=== PATIENT | female | born 1990 | race Caucasian/White ===

== ENCOUNTER 2017-04-28 19:47 | Emergency (ER) | payer OTHER ==
[2017-04-28 20:04] VITALS: BP 119/51; PULSE 91; TEMP 98.7; BMI 21.9
--- NOTE | 2017-04-28 20:07 | PDOC ---
Rapid Medical Evaluation Chief Complaint: Urinary Problem Time Seen by Provider: 04/28/17 20:04 Medical Evaluation: Allergies Allergy/AdvReac Type Severity Reaction Status Date / Time No Known Allergies Allergy Verified 04/28/17 20:03 04/28/17 20:04 I have performed a brief in-person evaluation of the patient. The patient presents with chief complaint of: burning with urination, frequency with urination and pressure since today. Denies fever chills or flank pain used azo with no relief LMP 4 weeks ago. Denies vaginal discharge Pertinent physical exam findings are: NAD lungs clear bilaterally non tender lower abdomen I have ordered the following: urine , urinalysis The patient will proceed to the ED for further evaluation. Discharge Disposition - Referrals Referrals: Annetta Henao [Primary Care Provider] - - Patient Instructions - Post Discharge Activity
[2017-04-28 20:53] LABS: URINE APPEARANCE SLCLOUDY; URINE BILIRUBIN NEGATIVE (NEGATIVE); URINE BLOOD 2+ (NEGATIVE); URINE COLOR AMBER; URINE GLUCOSE (UA) NEGATIVE (NEGATIVE); URINE KETONE NEGATIVE (NEGATIVE); URINE LEUK ESTERASE TRACE (NEGATIVE); URINE NITRITE POSITIVE (NEGATIVE); URINE UROBILINOGEN 4.0 E.U/dl mg/dL (0.2-1.0)
[2017-04-28 20:55] LABS: HCG,QUALITATIVE URINE NEGATIVE
--- NOTE | 2017-04-28 20:55 | PDOC ---
History of Present Illness - General Chief Complaint: Urinary Problem Stated Complaint: UTI Time Seen by Provider: 04/28/17 20:04 History Source: Patient Exam Limitations: No Limitations - History of Present Illness Travel History: No Initial Comments: 04/28/17 20:55 Best Contact:[phone] Pmhx: Bipolar, Anxiety Pshx: 2015: C section Allergies: NKDA 26-year-old female presents to the emergency department complaining of burning upon urination, dysuria, urinary frequency/urgency/hesitancy since approximately 1500 hrs. this evening. Patient took one tablet of Azo at 1600 hrs. with no relief. Patient denies fever, chills, nausea/vomiting, chest pains , shortness of breath, flank pains, abdominal pains. Patient states she's had UTIs previously and this and her symptoms today feel similar. Timing/Duration: reports: constant Past History - Past Medical History Allergies/Adverse Reactions: Allergies Allergy/AdvReac Type Severity Reaction Status Date / Time No Known Allergies Allergy Verified 04/28/17 20:03 Home Medications: Ambulatory Orders [place] Carbonate [Eskalith -] 300 mg PO BID 04/28/17 Nitrofurantoin Monohyd/M-Cryst [Macrobid -] 100 mg PO BID #14 capsule 04/28/17 Phenazopyridine HCl [Pyridium] 200 mg PO TID PRN #5 tablet 04/28/17 clonazePAM [Klonopin -] 2 mg PO DAILY 04/28/17 COPD: No - Immunization History Immunization Up to Date: Yes - Suicide/Smoking/Psychosocial Hx Smoking Status: Yes Smoking History: Never smoked Number of Cigarettes Smoked Daily: 4 Information on smoking cessation initiated: No 'Breaking Loose' booklet given: 09/23/15 Hx Alcohol Use: No Drug/Substance Use Hx: No Substance Use Type: None Abd/GI Specific PMHX - Complaint Specific PMHX Colitis: No Diverticulitis: No Gall Bladder Disease: No GERD: No Hepatitis: No Irritable Bowel Synd (IBS): No Pancreatitis: No GI Ulcer Disease: No Review of Systems - Review of Systems Able to Perform ROS?: Yes Comments:: 04/28/17 20:53 CONSTITUTIONAL: Absent: fever, chills, diaphoresis, generalized weakness, malaise, loss of appetite HEENT: Absent: rhinorrhea, nasal congestion, throat pain, throat swelling, difficulty swallowing, mouth swelling, ear pain, eye pain, visual Changes CARDIOVASCULAR: Absent: chest pain, loss of consciousness, palpitations, irregular heart rate, peripheral edema RESPIRATORY: Absent: cough, shortness of breath, dyspnea with exertion, orthopnea, wheezing, stridor, hemoptysis GASTROINTESTINAL: Absent: abdominal pain, abdominal distension, nausea, vomiting, diarrhea, constipation, melena, hematochezia GENITOURINARY: +dysuria, frequency, urgency, hesitancy Absent: hematuria, flank pain, genital pain MUSCULOSKELETAL: Absent: myalgia, arthralgia, joint swelling SKIN: Absent: rash, itching, pallor Is the patient limited Cook Islander proficient: No *Physical Exam - Vital Signs Last Vital Signs Temp Pulse Resp BP Pulse Ox 98.7 F 91 H 18 119/51 97 04/28/17 20:03 04/28/17 20:03 04/28/17 20:03 04/28/17 20:03 04/28/17 20:03 - Physical Exam Comments: 04/28/17 20:54 GENERAL: Well developed, well nourished. Awake and alert. No acute distress. HEENT: Normocephalic, atraumatic. PERRLA, EOMI. No conjunctival pallor. Sclera are non- icteric. Moist mucous membranes. Oropharynx is clear. NECK: Supple. Full ROM. No JVD. Carotid pulses 2+ and symmetric, without bruits. No thyromegaly. No lymphadenopathy. CARDIOVASCULAR: Regular rate and rhythm. No murmurs, rubs, or gallops. Distal pulses are 2+ and symmetric. PULMONARY: No evidence of respiratory distress. Lungs clear to auscultation bilaterally. No wheezing, rales or rhonchi. ABDOMINAL: Soft. Non-tender. Non-distended. No rebound or guarding. No organomegaly. Normoactive bowel sounds. MUSCULOSKELETAL Normal range of motion at all joints. No bony deformities or tenderness. No CVA tenderness. EXTREMITIES: No cyanosis. No clubbing. No edema. No calf tenderness. SKIN: Warm and dry. Normal capillary refill. No rashes. No jaundice. *DC/Admit/Observation/Transfer Diagnosis at time of Disposition: UTI (urinary tract infection) Qualifiers: Urinary tract infection type: acute cystitis Hematuria presence: with hematuria Qualified Code(s): N30.01 - Acute cystitis with hematuria - Discharge Dispostion Disposition: HOME Condition at time of disposition: Stable Admit: No - Prescriptions Prescriptions: Nitrofurantoin Monohyd/M-Cryst [Macrobid -] 100 mg PO BID #14 capsule Phenazopyridine HCl [Pyridium] 200 mg PO TID PRN #5 tablet PRN Reason: Pain Level 7 - 10 - Referrals Referrals: Annetta Henao [Primary Care Provider] - Sriram Kurtz MD., [Staff Physician] - - Patient Instructions Printed Discharge Instructions: DI for Urinary Tract Infection (UTI) Additional Instructions: Increase fluids Pelvic rest Take antibiotics/Macrobid until complete Take Pyridium only if needed for your symptoms of burn upon urination, urinary frequency and urgency Return back to the emergency department for severe/persistent or worsening symptoms - Post Discharge Activity
[2017-04-28 20:56] LABS: URINE PROTEIN 2+ (NEGATIVE)
[2017-04-28 20:58] LABS: EPI CELLS FEW /HPF (FEW); URINE BACTERIA RARE /hpf (NONE SEEN); URINE MUCUS RARE
[2017-04-28] MEDS ORDERED: NITROFURANTOIN MACROCRYSTAL 50 MG CAPSULE (FP) PO SCH (21:00)
[2017-04-28] MEDS ORDERED: NITROFURANTOIN MACROCRYSTAL 50 MG CAPSULE (FP) ONE (21:01)
--- NOTE | 2017-05-01 07:29 | PDOC ---
Patient Follow-up (Call Back) - Post ED Follow - Up Condition at time of discharge: Stable Disposition at time of original discharge: HOME Reason for Call Back: Abnwl. Microbiology (Patient's urine culture preliminary shows non Lactose fermenting GNB 30-40,000 CFU per mL. Patient was placed on Macrobid upon ED discharge. Will await final report.)
== END 2017-04-28 21:04 | disposition home or self-care (01) ==
LOC: JERFT 19:47
DX: N30.01 Acute cystitis with hematuria (principal)
CPT/HCPCS: 81003; 81015; 84703; 87086; 87186; 99281-25

== ENCOUNTER 2017-06-08 21:37 | Emergency (ER) | payer OTHER ==
[2017-06-08 21:49] VITALS: BP 154/82; PULSE 98; TEMP 98.1; BMI 18.8
--- NOTE | 2017-06-08 22:17 | PDOC ---
History of Present Illness - General Chief Complaint: Injury Stated Complaint: LT ANKLE PAIN Time Seen by Provider: 06/08/17 21:52 - History of Present Illness Initial Comments: 06/08/17 22:16 CHIEF COMPLAINT: HISTORY OF PRESENT ILLNESS: No recent travel or sick contacts. PAST MEDICAL HISTORY: Denies past medical history FAMILY HISTORY: Denies SOCIAL HISTORY: Lives at home with ____. Occupation: . Denies tobacco, alcohol, illicit drug use. SURGICAL HISTORY: Denies ALLERGIES: No known drug allergies REVIEW OF SYSTEMS General/Constitutional: Denies fever or chills. Denies weakness, weight change. HEENT: Denies change in vision. Denies ear pain or discharge. Denies sore throat. Cardiovascular: Denies chest pain or shortness of breath. Respiratory: Denies cough, wheezing, or hemoptysis. Gastrointestinal: Denies nausea, vomiting, diarrhea or constipation. Denies rectal bleeding. Genitourinary: Denies dysuria, frequency, or change in urination. Musculoskeletal: Left ankle pain. Denies joint or muscle swelling or pain. Denies neck or back pain. PHYSICAL EXAM General Appearance: Well-appearing, appropriately dressed. No apparent distress , no intoxication. HEENT: EOMI, PERRLA, normal ENT inspection, normal voice, TMs normal, pharynx normal. No conjunctival pallor. No photophobia, scleral icterus. Neck: Supple. Trachea midline. No tenderness, rigidity, carotid bruit, stridor , lymphadenopathy, or thyromegaly. Respiratory/Chest: Lungs CTAB. No shortness of breath, chest tenderness, respiratory distress, accessory muscle use. No crackles, rales, rhonchi, stridor , wheezing, dullness Cardiovascular: RRR. S1, S2. No JVD, murmur, bradycardia, tachycardia. Vascular Pulses: Dorsalis-Pedis (R): 2+, Dorsalis-Pedis (L): 2+ Gastrointestinal/Abdominal: Normal bowel sounds. Abdomen soft, non-distended. No tenderness or rebound tenderness. No organomegaly, pulsatile mass, guarding , hernia, hepatomegaly, splenomegaly. Lymphatic: No adenopathy, tenderness. Musculoskeletal/Extremities: Tenderness to medial L malleolus. Normal inspection. FROM of all extremities, normal capillary refill. Pelvis Stable. No CVA tenderness. No tenderness to extremities, pedal edema, swelling, erythema or deformity. Integumentary: Appropriate color, dry, warm. No cyanosis, erythema, jaundice or rash Neurologic: loss control manager II-XII intact. Fully oriented, alert. Appropriate mood/affect. Motor strength 5/5. No appreciable EOM palsy, facial droop or sensory deficit. Past History - Past Medical History Allergies/Adverse Reactions: Allergies Allergy/AdvReac Type Severity Reaction Status Date / Time No Known Allergies Allergy Verified 04/28/17 20:03 Home Medications: Ambulatory Orders [place] Carbonate [Eskalith -] 300 mg PO BID 04/28/17 Acetaminophen [Tylenol .Extra-Strength -] 1,000 mg PO Q6H PRN #40 tablet Olanzapine [Zyprexa] 5 mg PO ASDIR 06/08/17 COPD: No - Immunization History Immunization Up to Date: Yes - Suicide/Smoking/Psychosocial Hx Smoking Status: Yes Smoking History: Never smoked Have you smoked in the past 12 months: No Number of Cigarettes Smoked Daily: 4 Information on smoking cessation initiated: No 'Breaking Loose' booklet given: 09/23/15 Hx Alcohol Use: No Drug/Substance Use Hx: No Substance Use Type: None *Physical Exam - Vital Signs Last Vital Signs Temp Pulse Resp BP Pulse Ox 98.1 F 98 H 20 154/82 100 06/08/17 21:47 06/08/17 21:47 06/08/17 21:47 06/08/17 21:47 06/08/17 21:47 ED Treatment Course - ADDITIONAL ORDERS Additional order review: Laboratory Results 06/08/17 21:50 Urine HCG, Qual Negative - RADIOLOGY Radiology Studies Ordered: Category Date Time Status ANKLE & FOOT-LEFT* [RAD] Stat Radiology 06/08/17 21:53 Ordered *DC/Admit/Observation/Transfer Diagnosis at time of Disposition: Ankle sprain - Discharge Dispostion Disposition: HOME Condition at time of disposition: Stable Admit: No - Prescriptions Prescriptions: Acetaminophen [Tylenol .Extra-Strength -] 1,000 mg PO Q6H PRN #40 tablet PRN Reason: Pain - Referrals Referrals: José Luis Segovia MD [Staff Physician] - - Patient Instructions Printed Discharge Instructions: DI for Ankle Sprain, How To Perform RICE (Rest , Ice, Compress, Elevate) Additional Instructions: Please take medication as prescribed. Follow RICE therapy as provided in information packet. As discussed, if your symptoms do not improve in 5-7 days, please follow up with an orthopedics for further evaluation and a possible MRI or physical therapy. If you experience any loss of sensation to your extremities, any new swelling or increased pain to your calf or leg, palpitations, shortness of breath, or any new or worsening symptoms, please return to the ER. - Post Discharge Activity
[2017-06-08] MEDS ORDERED: ACETAMINOPHEN 325 MG TABLET (FP) ONE (22:43)
== END 2017-06-08 22:59 | disposition home or self-care (01) ==
LOC: JERFT 21:37
DX: S93.402A Sprain of unspecified ligament of left ankle, initial encounter (principal); X58.XXXA Exposure to other specified factors, initial encounter; Y93.89 Activity, other specified; Y92.89 Other specified places as the place of occurrence of the external cause; Y99.8 Other external cause status
CPT/HCPCS: 73610-TC-LT-FY; 73630-TC-LT; 84703; 99281-25

== ENCOUNTER 2017-07-21 12:33 | Emergency (ER) | payer OTHER ==
[2017-07-21 13:02] VITALS: BP 135/73; PULSE 97; TEMP 98.1; BMI 20.3
[2017-07-21 13:37] LABS: URINE APPEARANCE TURBID; URINE BILIRUBIN NEGATIVE (<2.0 mg/dL); URINE BLOOD NEGATIVE (NEGATIVE); URINE COLOR DKYELLOW; URINE GLUCOSE (UA) NEGATIVE (NEGATIVE); URINE KETONE TRACE (NEGATIVE); URINE NITRITE POSITIVE (NEGATIVE)
[2017-07-21 13:38] LABS: HCG,QUALITATIVE URINE NEGATIVE
[2017-07-21 13:39] LABS: URINE LEUK ESTERASE 3+ (NEGATIVE); URINE PROTEIN 1+ (NEGATIVE)
--- NOTE | 2017-07-21 13:43 | PDOC ---
History of Present Illness - General Chief Complaint: Urinary Problem Stated Complaint: POSSIBLE UTI Time Seen by Provider: 07/21/17 13:00 Past History - Past Medical History Allergies/Adverse Reactions: Allergies Allergy/AdvReac Type Severity Reaction Status Date / Time No Known Allergies Allergy Verified 07/21/17 12:59 Home Medications: Ambulatory Orders [place] Carbonate [Eskalith -] 300 mg PO BID 04/28/17 Acetaminophen [Tylenol .Extra-Strength -] 1,000 mg PO Q6H PRN #40 tablet Olanzapine [Zyprexa] 5 mg PO ASDIR 06/08/17 Nitrofurantoin Monohyd/M-Cryst [Macrobid -] 100 mg PO BID #14 capsule 07/21/17 COPD: No Psychiatric Problems: Yes - Immunization History Immunization Up to Date: Yes - Suicide/Smoking/Psychosocial Hx Smoking Status: Yes Smoking History: Current every day smoker Have you smoked in the past 12 months: No Number of Cigarettes Smoked Daily: 4 Information on smoking cessation initiated: No 'Breaking Loose' booklet given: 09/23/15 Hx Alcohol Use: No Drug/Substance Use Hx: No Substance Use Type: None *Physical Exam - Vital Signs Last Vital Signs Temp Pulse Resp BP Pulse Ox 98.1 F 97 H 18 135/73 96 07/21/17 12:59 07/21/17 12:59 07/21/17 12:59 07/21/17 12:59 07/21/17 12:59 ED Treatment Course - ADDITIONAL ORDERS Additional order review: Laboratory Results 07/21/17 13:15 Urine Color Dkyellow Urine Appearance Turbid Urine pH 7.0 D Ur Specific [place] 1.024 Urine Protein 1+ H Urine Glucose (UA) Negative Urine Ketones Trace H Urine Blood Negative Urine Nitrite Positive Urine Bilirubin Negative Urine Urobilinogen 2.0 H Ur Leukocyte Esterase 3+ H Urine HCG, Qual Negative Medical Decision Making - Medical Decision Making Patient eloped prior to examination and history. 07/21/17 13:50 *DC/Admit/Observation/Transfer Diagnosis at time of Disposition: UTI (urinary tract infection) - Discharge Dispostion Disposition: ELOPED Decision to Admit order: No - Prescriptions Prescriptions: Nitrofurantoin Monohyd/M-Cryst [Macrobid -] 100 mg PO BID #14 capsule - Referrals Referrals: Annetta Henao [Primary Care Provider] - - Patient Instructions Printed Discharge Instructions: Urinary Tract Infection - Post Discharge Activity
[2017-07-21 14:00] LABS: EPI CELLS RARE /HPF (FEW); URINE BACTERIA MANY /hpf (NONE SEEN); URINE MUCUS RARE
== END 2017-07-21 13:51 | disposition left against medical advice (07) ==
LOC: JER 12:33 → JERFT 12:33
DX: Z53.21 Procedure and treatment not carried out due to patient leaving prior to being seen by health care provider (principal)
CPT/HCPCS: 81003; 81015; 84703; 99281-25

== ENCOUNTER 2018-04-30 20:17 | Emergency (ER) | payer OTHER ==
[2018-04-30 20:21] VITALS: BP 123/74; PULSE 102; TEMP 98; BMI 20.3
--- NOTE | 2018-04-30 20:22 | PDOC ---
Rapid Medical Evaluation Time Seen by Provider: 04/30/18 20:19 Medical Evaluation: Allergies Allergy/AdvReac Type Severity Reaction Status Date / Time No Known Allergies Allergy Verified 07/21/17 12:59 04/30/18 20:19 I performed a brief in-person evaluation of this patient. Chief complaint: Fever, bodyaches Pertinent physical exam findings: Clear lungs, afebrile, HR 102 I have ordered the following: Rapid flu Patient will proceed to the ED for further evaluation. 04/30/18 20:22 Discharge Disposition - Diagnosis Flu-like symptoms - Referrals - Patient Instructions - Post Discharge Activity
--- NOTE | 2018-04-30 20:44 | PDOC ---
History of Present Illness - General Chief Complaint: Cold Symptoms Stated Complaint: HAS THE FLU Time Seen by Provider: 04/30/18 20:19 History Source: Patient Exam Limitations: No Limitations - History of Present Illness Initial Comments: 04/30/18 20:43 HISTORY OF PRESENT ILLNESS: This is a 27-year-old woman denies medical history was resents emergency department for evaluation of bitemporal headache, moist cough, subjective fevers and body aches for the past 2 days. Patient is unsure if she has any sick contacts was been taking some [id number] medication with minimal relief of symptoms. Patient believes she has the flu was here for testing. No recent travel or sick contacts. PAST MEDICAL HISTORY: Denies past medical history SURGICAL HISTORY: Denies ALLERGIES: No known drug allergies REVIEW OF SYSTEMS General/Constitutional: +fever. Denies weakness, weight change. HEENT: Denies change in vision. Denies ear pain or discharge. +sore throat. Cardiovascular: Denies chest pain or shortness of breath. Respiratory: Moist productive cough. Denies wheezing, or hemoptysis. Gastrointestinal: Denies nausea, vomiting, diarrhea or constipation. Denies rectal bleeding. Genitourinary: Denies dysuria, frequency, or change in urination. Musculoskeletal: +myalgias. Denies neck or back pain. Skin and breasts: Denies rash or easy bruising. Neurologic: Denies headache, vertigo, loss of consciousness, or loss of sensation. Psychiatric: Denies depression or anxiety. Endocrine: Denies increased thirst. Denies abnormal weight change. Hematologic/Lymphatic: Denies anemia, easy bleeding, or history of blood clots. Allergic/Immunologic: Denies hives or skin allergy. Denies latex allergy. PHYSICAL EXAM General Appearance: Well-appearing, appropriately dressed. No apparent distress , no intoxication. HEENT: EOMI, PERRLA, normal voice, TMs retracted bilaterally. No conjunctival pallor. No photophobia, scleral icterus. Oropharynx erythematous without lesions or exudate. Cobblestoning noted in the posterior. No nasal discharge present. Neck: Supple. Trachea midline. No tenderness, rigidity, carotid bruit, stridor , or thyromegaly. Nontender anterior cervical lymphadenopathy present. Respiratory/Chest: Lungs CTAB. No shortness of breath, chest tenderness, respiratory distress, accessory muscle use. No crackles, rales, rhonchi, stridor , wheezing, dullness Cardiovascular: RRR. S1, S2. No JVD, murmur, bradycardia, tachycardia. Vascular Pulses: Dorsalis-Pedis (R): 2+, Dorsalis-Pedis (L): 2+ Gastrointestinal/Abdominal: Normal bowel sounds. Abdomen soft, non-distended. No tenderness or rebound tenderness. No organomegaly, pulsatile mass, guarding, hernia, hepatomegaly, splenomegaly. Musculoskeletal/Extremities: Normal inspection. FROM of all extremities, normal capillary refill. Pelvis Stable. No CVA tenderness. No tenderness to extremities, pedal edema, swelling, erythema or deformity. Integumentary: Appropriate color, dry, warm. No cyanosis, erythema, jaundice or rash Neurologic: iv technician II-XII intact. Fully oriented, alert. Appropriate mood/affect. Motor strength 5/5. No appreciable EOM palsy, facial droop or sensory deficit. Past History - Past Medical History Allergies/Adverse Reactions: Allergies Allergy/AdvReac Type Severity Reaction Status Date / Time No Known Allergies Allergy Verified 04/30/18 20:21 Home Medications: Ambulatory Orders [place] Carbonate [Eskalith -] 300 mg PO BID 04/28/17 Acetaminophen [Tylenol .Extra-Strength -] 1,000 mg PO Q6H PRN #40 tablet Olanzapine [Zyprexa] 5 mg PO ASDIR 06/08/17 Nitrofurantoin Monohyd/M-Cryst [Macrobid -] 100 mg PO BID #14 capsule 07/21/17 COPD: No Psychiatric Problems: Yes - Immunization History Immunization Up to Date: Yes - Suicide/Smoking/Psychosocial Hx Smoking Status: Yes Smoking History: Never smoked Have you smoked in the past 12 months: No Number of Cigarettes Smoked Daily: 4 'Breaking Loose' booklet given: 09/23/15 Hx Alcohol Use: No Drug/Substance Use Hx: No Substance Use Type: None *Physical Exam - Vital Signs Last Vital Signs Temp Pulse Resp BP Pulse Ox 98.0 F 102 H 18 123/74 100 04/30/18 20:19 04/30/18 20:19 04/30/18 20:19 04/30/18 20:19 04/30/18 20:19 Moderate Sedation - Procedure Monitoring Vital Signs: Procedure Monitoring Vital Signs Temperature 98.0 F 04/30/18 20:19 Pulse Rate 102 H 04/30/18 20:19 Respiratory Rate 18 04/30/18 20:19 Blood Pressure 123/74 04/30/18 20:19 O2 Sat by Pulse Oximetry (%) 100 04/30/18 20:19 Medical Decision Making - Medical Decision Making 04/30/18 20:44 A/P: 27-year-old woman with influenza like illness for 2 days Influenza testing pending from rapid medical evaluation Reassess 04/30/18 21:43 Influenza testing is negative. I will discharge patient home with instructions for supportive treatment. Patient verbalizes understanding of discharge instructions and was satisfied with the care received today. *DC/Admit/Observation/Transfer Diagnosis at time of Disposition: Nasopharyngitis acute - Discharge Dispostion Disposition: HOME Condition at time of disposition: Stable Decision to Admit order: No - Referrals - Patient Instructions Additional Instructions: Rest, drink lots of fluids: Teas, water, soups, Pedialyte Saltwater gargles Steamy showers/seem to face break up mucus Avoid contact with others until fevers and cough resolved Lots of handwashing and good hygiene Continue [id number] medications for symptomatic relief Tylenol or Motrin for fever and pain Followup with private physician in one to 2 days as needed Return to emergency department for worsened symptoms, fevers, dehydration - Post Discharge Activity Forms/Work/School Notes: Back to Work
== END 2018-04-30 21:47 | disposition home or self-care (01) ==
LOC: JERFT 20:17
DX: J00 Acute nasopharyngitis [common cold] (principal)
CPT/HCPCS: 87804; 99281-25

== ENCOUNTER 2018-06-20 15:13 | Emergency (ER) | payer OTHER ==
[2018-06-20 15:22] VITALS: BP 108/75; PULSE 75; TEMP 98; BMI 21.9
[2018-06-20] MEDS ORDERED: SODIUM CHLORIDE 1,000 ML IV STA (15:55)
--- NOTE | 2018-06-20 16:01 | PDOC ---
History of Present Illness - General Chief Complaint: Palpitations Stated Complaint: PALPATATION Time Seen by Provider: 06/20/18 15:45 History Source: Patient Exam Limitations: No Limitations - History of Present Illness Initial Comments: 06/20/18 16:15 28 y/o female with no PMH presents to the ED with complaints of palpitations. Patient states the palpitations started out of the blue yesterday she states that she had taken a percocet and then smoked some marijuana becuase her back was hurting her and then the palpitations started. [facility] went to [facility] where they did an EKG and gave her some fluids. however this morning she still woke up with the palpitations. This has never happened to her before- she denies any systemic symptoms; no recent illness, no fevers chills nausea or vomtiting. denies any recent travel or any sick contacts. she states that she drinks one to two cups of coffee per day and does not take any energy drinks. no significant cardiac family history. 06/20/18 16:16 Timing/Duration: 24 hours Severity: mild Associated Symptoms: denies: chest pain Past History - Travel Traveled outside of the country in the last 30 days: No Close contact w/someone who was outside of country & ill: No - Past Medical History Allergies/Adverse Reactions: Allergies Allergy/AdvReac Type Severity Reaction Status Date / Time No Known Allergies Allergy Verified 06/20/18 15:16 Home Medications: Ambulatory Orders [place] Carbonate [Eskalith -] 1,200 mg PO DAILY 06/20/18 Risperidone [Risperdal] 2 mg PO DAILY 06/20/18 COPD: No Psychiatric Problems: Yes - Immunization History Immunization Up to Date: Yes - Suicide/Smoking/Psychosocial Hx Smoking Status: Yes Smoking History: Current some day smoker Have you smoked in the past 12 months: No Number of Cigarettes Smoked Daily: 4 Information on smoking cessation initiated: No 'Breaking Loose' booklet given: 09/23/15 Hx Alcohol Use: No Drug/Substance Use Hx: No Substance Use Type: None Review of Systems - Review of Systems Able to Perform ROS?: Yes Is the patient limited [place] proficient: No HEENTM: No: Blurred Vision Respiratory: No: Shortness of Breath Cardiac (ROS): Yes: Palpitations ABD/GI: No: Nausea, Vomiting : No: Burning, Dysuria Neurological: No: Headache *Physical Exam - Vital Signs Last Vital Signs Temp Pulse Resp BP Pulse Ox 98 F 75 18 108/75 99 06/20/18 15:19 06/20/18 15:19 06/20/18 15:19 06/20/18 15:19 06/20/18 15:19 - Physical Exam General Appearance: Yes: Nourished Neck: positive: Normal Thyroid Respiratory/Chest: positive: Lungs Clear, Normal Breath Sounds Cardiovascular: positive: Regular Rhythm, S1, S2, Tachycardia Gastrointestinal/Abdominal: positive: Flat, Soft. negative: Tender Musculoskeletal: negative: CVA Tenderness Integumentary: positive: Normal Color Neurologic: positive: Fully Oriented, Alert Procedures - Bedside Ultrasound Bedside Ultrasound: Cardiac Remarks: 06/20/18 17:01 normal. ED Treatment Course - LABORATORY CBC & Chemistry Diagram: 06/20/18 16:20 Medical Decision Making - Medical Decision Making 06/20/18 17:01 tsh/cmp/cardiac fluids bedside echo done: wnl labs ; normal; tsh and cardiac prof normal 06/20/18 18:14 *DC/Admit/Observation/Transfer Diagnosis at time of Disposition: Palpitations - Discharge Dispostion Disposition: HOME Condition at time of disposition: Stable - Referrals Referrals: Clay Alarcon MD [Staff Physician] - - Patient Instructions Printed Discharge Instructions: DI for Palpitations Additional Instructions: We are referring you to a cement grinding mill operator we woule like you to follow up with meli one week as he may want to do further testing and possible have you wear a holter monitor please follow up with your primary acre physician within one week stay away from drinking a lot of caffeine or energy drinks if you begin to have worsening or concerning symptoms please return to the emergency room - Post Discharge Activity - Attestations Physician Attestion: 06/20/18 18:19 Twyla Arnold
[2018-06-20 18:12] LABS: ALBUMIN 3.7 g/dl (3.4-5.0); ALK PHOS 63 U/L (45-117); ANION GAP 6 MMOL/L (8-16); BILIRUBIN,TOTAL 0.7 mg/dL (0.2-1); BLOOD UREA NITROGEN 3 mg/dL (7-18); CALCIUM 8.9 mg/dL (8.5-10.1); CHLORIDE 107 mmol/L (98-107); CO2 24 mmol/L (21-32); CREATININE 0.5 mg/dL (0.55-1.3); GLUCOSE,RANDOM 106 mg/dL (74-106); POTASSIUM 4.1 mmol/L (3.5-5.1); SGOT/AST 8 U/L (15-37); SGPT/ALT 17 U/L (13-61); SODIUM 137 mmol/L (136-145); TOT PROT 7.3 g/dl (6.4-8.2)
--- NOTE | 2018-06-20 18:26 | PDOC ---
Documentation entered by Osman Fam SCRIBE, acting as scribe for Misha Salazar MD. Misha Salazar MD: This documentation has been prepared by the Sarwat chase Nirvannie, SCRIBE, under my direction and personally reviewed by me in its entirety. I confirm that the documentation accurately reflects all work, treatment, procedures, and medical decision making performed by me. Attending Attestation - Resident Resident Name: Twyla Arnold - ED Attending Attestation I have performed the following: I have examined & evaluated the patient, The case was reviewed & discussed with the resident, I agree w/resident's findings & plan, Exceptions are as noted - HPI HPI: 06/20/18 16:47 The patient is a 28 year old female, with a significant past medical history of bipolar disorder, who presents to the emergency department with, 2 days of palpitations. Patient notes yesterday she had an onset of back pain thus, she took a Percocet and smoked marijuana. She endorses an onset of palpitations thus , she went called EMS and went to [facility] ER at which time she received fluids and an EKG. Today she notes her palpitations did not resolve with associated burning chest pain, prompting her arrival to the ED. She denies any diaphoresis, nausea, or vomiting. Allergies: NKDA - Physicial Exam PE: 06/20/18 16:48 GENERAL: Awake, alert, and fully oriented, in no acute distress HEAD: No signs of trauma NECK: Normal ROM. LUNGS: Breath sounds equal, clear to auscultation bilaterally. No wheezes, and no crackles HEART: Regular rate and rhythm, normal S1 and S2, no murmurs, rubs or gallops ABDOMEN: Soft, nontender, normoactive bowel sounds. No guarding, no rebound. No masses EXTREMITIES: Normal range of motion, no edema. No clubbing or cyanosis. No cords, erythema, or tenderness NEUROLOGICAL: Cranial nerves II through XII grossly intact. Normal speech. SKIN: Warm, Dry, normal turgor, no rashes or lesions noted. - Medical Decision Making 06/20/18 17:05 A portion of this note was documented by scribe services under my direction. I have reviewed the details of the note, within reason, and agree with the documentation with the following case summary and management plan written by me. Patient treated in the ED. Nursing notes are reviewed and incorporated into the medical decision-making. Vital signs reviewed. Peripheral IV access obtained by the nurse, laboratory studies are drawn and sent, reviewed and interpreted by myself. Vital Signs Temp Pulse Resp BP Pulse Ox 98 F 75 18 108/75 99 06/20/18 15:19 06/20/18 15:19 06/20/18 15:19 06/20/18 15:19 06/20/18 15:19 28-year-old female with no past medical history presents with palpitations. The patient reported since yesterday that she felt intermittent palpitations and some mild chest discomfort. The patient had taken marijuana before. She is not usually a frequent smoker. Reports half-pack a smoking cigarettes. Denies recent illnesses, fevers, chills, cough, vomiting. She went to [facility] yesterday and reported he had an EKG and blood work performed which was unremarkable. Patient was discharged. However, the patient had persistent palpitations so came to the ER. Patient reports that being in the emergency department makes her feel more relaxed. Patient denies any additional stressors at home. The patient reports feeling palpitations though her heart rate is normal here. We'll obtain labs including TSH, troponin, electrolytes, CMP. Bedside echocardiogram on my examination demonstrates no pericardial effusion and normal contractility. If the workup is negative, the patient should be discharged home and follow-up with a fruit harvest machine operator for Holter monitor. 06/20/18 18:19 CBC, BMP 06/20/18 16:20 CMP Sodium 137 mmol/L (136-145) 06/20/18 16:20 Potassium 4.1 mmol/L (3.5-5.1) 06/20/18 16:20 Chloride 107 mmol/L (98-107) 06/20/18 16:20 Carbon Dioxide 24 mmol/L (21-32) 06/20/18 16:20 Anion Gap 6 MMOL/L (8-16) L 06/20/18 16:20 BUN 3 mg/dL (7-18) L 06/20/18 16:20 Creatinine 0.5 mg/dL (0.55-1.3) L 06/20/18 16:20 Creat Clearance w eGFR 146.91 (>60) 06/20/18 16:20 Random Glucose 106 mg/dL (74-106) 06/20/18 16:20 Calcium 8.9 mg/dL (8.5-10.1) 06/20/18 16:20 Total Bilirubin 0.7 mg/dL (0.2-1) 06/20/18 16:20 AST 8 U/L (15-37) L 06/20/18 16:20 ALT 17 U/L (13-61) 06/20/18 16:20 Alkaline Phosphatase 63 U/L (45-117) 06/20/18 16:20 Creatine Kinase 40 U/L (26-192) 06/20/18 16:20 Troponin I < 0.02 ng/ml (0.00-0.05) 06/20/18 16:20 Total Protein 7.3 g/dl (6.4-8.2) 06/20/18 16:20 Albumin 3.7 g/dl (3.4-5.0) 06/20/18 16:20 TSH 0.74 uIU/ml (0.358-3.74) 06/20/18 16:20 Heart Score/ECG Review #1 ECG reviewed & interpreted by me at: 15:10 06/20/18 17:05 NSR 84, RSR' V2, no std/bre, normal axis, normal intervals, QTC 430 msec
--- NOTE | 2018-06-21 15:02 | EKG ---
Test Reason : Blood Pressure : / mmHG Vent. Rate : 064 BPM Atrial Rate : 064 BPM P-R Int : 140 ms QRS Dur : 082 ms QT Int : 382 ms P-R-T Axes : -15 055 048 degrees QTc Int : 394 ms NORMAL SINUS RHYTHM EARLY REPOLARIZATION NORMAL ECG WHEN COMPARED WITH ECG OF 20-JUN-2018 15:07, NO SIGNIFICANT CHANGE WAS FOUND Confirmed by ROSALBA MOYER MD ([id number]) on 06/21/2018 3:01:52 PM Referred By: Confirmed By:ROSALBA MOYER MD
--- NOTE | 2018-06-21 15:03 | EKG ---
Test Reason : Blood Pressure : / mmHG Vent. Rate : 084 BPM Atrial Rate : 084 BPM P-R Int : 134 ms QRS Dur : 082 ms QT Int : 364 ms P-R-T Axes : 055 059 044 degrees QTc Int : 430 ms NORMAL SINUS RHYTHM WITH SINUS ARRHYTHMIA NORMAL ECG NO PREVIOUS ECGS AVAILABLE Confirmed by ROSALBA MOYER MD ([id number]) on 06/21/2018 3:02:48 PM Referred By: Confirmed By:ROSALBA MOYER MD
== END 2018-06-20 19:13 | disposition home or self-care (01) ==
LOC: JER 15:13
PROC: 3E0337Z Introduction of Electrolytic and Water Balance Substance into Peripheral Vein, Percutaneous Approach (ICD-10-PCS; principal; 2018-06-20)
PROC: B246ZZZ Ultrasonography of Right and Left Heart (ICD-10-PCS; 2018-06-20)
DX: R00.2 Palpitations (principal)
CPT/HCPCS: 36415; 80053; 82550; 84443; 84484; 93005; 93010; 93303; 96360; 99283-25; J7030

== ENCOUNTER 2019-02-08 15:24 | Emergency (ER) | payer OTHER ==
--- NOTE | 2019-02-08 15:29 | PDOC ---
Rapid Medical Evaluation Time Seen by Provider: 02/08/19 15:26 Medical Evaluation: Allergies Allergy/AdvReac Type Severity Reaction Status Date / Time No Known Allergies Allergy Verified 06/20/18 15:16 02/08/19 15:26 I performed a brief in-person evaluation of this patient. 28-year-old female smoker with palpitations x 1 hr. C/o intermittent CP. Feeling anxious. Pertinent physical exam findings: HR 90, regular, no murmurs Lungs CTAB I have ordered the following: EKG Basic labs, TSH Patient to proceed to the Ed for further evaluation. Discharge Disposition - Diagnosis Palpitations - Referrals - Patient Instructions - Post Discharge Activity
[2019-02-08 15:32] VITALS: BP 124/61; PULSE 88; TEMP 98.1; BMI 23.5
[2019-02-08 16:10] LABS: BASO % 0.6 % (0-2.0); EOS % 1.5 % (0-4.5); HEMOGLOBIN 14.2 GM/dL (10.7-15.3); LYMPH % 20.6 % (8-40); MCH 30.7 pg (25.7-33.7); MEAN CELL VOLUME 93.1 fl (80-96); MEAN PLT VOLUME 9.3 fl (7.5-11.1); MONO % 5.5 % (3.8-10.2); NEUT % 71.8 % (42.8-82.8); PLATELET COUNT 279 K/MM3 (134-434); RBC 4.62 M/mm3 (3.60-5.2); RDW 13.5 % (11.6-15.6); WHITE BLOOD COUNT 7.3 K/mm3 (4.0-10.0)
[2019-02-08 16:39] LABS: BLOOD UREA NITROGEN 7.5 mg/dL (7-18); CALCIUM 9.5 mg/dL (8.5-10.1); CREATININE 0.7 mg/dL (0.55-1.3); POTASSIUM 4.3 mmol/L (3.5-5.1)
--- NOTE | 2019-02-08 17:09 | PDOC ---
*Physical Exam - Vital Signs Last Vital Signs Temp Pulse Resp BP Pulse Ox 98.1 F 88 18 124/61 98 02/08/19 15:27 02/08/19 15:27 02/08/19 15:27 02/08/19 15:27 02/08/19 15:27 ED Treatment Course - LABORATORY CBC & Chemistry Diagram: 02/08/19 15:42 02/08/19 15:42 - ADDITIONAL ORDERS Additional order review: Laboratory Results 02/08/19 02/08/19 15:42 15:42 Sodium 137 Potassium 4.3 Chloride 104 Carbon Dioxide 26 Anion Gap 8 BUN 7.5 Creatinine 0.7 Est GFR (CKD-EPI)AfAm 136.66 Est GFR (CKD-EPI)NonAf 117.91 Random Glucose 88 Calcium 9.5 TSH 1.01 Urine HCG, Qual Negative 02/08/19 15:42 RBC 4.62 MCV 93.1 MCHC 33.0 RDW 13.5 MPV 9.3 Neutrophils % 71.8 Lymphocytes % 20.6 Monocytes % 5.5 Eosinophils % 1.5 Basophils % 0.6 Medical Decision Making - Medical Decision Making 02/08/19 17:09 The patient was seen and evaluated in conjunction with STEPHANIE Hackett under my direct supervision, ancillary studies were reviewed.I agree with the plan as outlined by STEPHANIE Hackett. Discharge - Discharge Information Clinical Impression/Diagnosis: Palpitations - Follow up/Referral - Patient Discharge Instructions - Post Discharge Activity
--- NOTE | 2019-02-08 17:23 | PDOC ---
History of Present Illness - General Chief Complaint: Irregular Heart Beat Stated Complaint: CHEST PAIN Time Seen by Provider: 02/08/19 15:26 History Source: Patient Exam Limitations: No Limitations - History of Present Illness Initial Comments: 02/08/19 16:17 28-year-old female presents to ED with feeling an irregular heartbeat along with feeling of anxiety. Patient states symptoms began 2 hours ago while at home after smoking a cigarette. States history of bipolar but does not take medications for at least the past 3 months. patient denies chest pain, recent travel, leg swelling but states does have an IUD placed. Patient denies change in weight, hair loss, recent illness, or drug use. Is this a multiple visit Asthma Patient?: No Timing/Duration: 1-3 hours, resolved prior to arrival Severity: moderate Associated Symptoms: reports: other Past History - Travel Traveled outside of the country in the last 30 days: No Close contact w/someone who was outside of country & ill: No - Past Medical History Allergies/Adverse Reactions: Allergies Allergy/AdvReac Type Severity Reaction Status Date / Time No Known Allergies Allergy Verified 02/08/19 15:27 Home Medications: Ambulatory Orders [place] Carbonate [Eskalith -] 1,200 mg PO DAILY 06/20/18 Risperidone [Risperdal] 2 mg PO DAILY 06/20/18 COPD: No Psychiatric Problems: Yes - Immunization History Immunization Up to Date: Yes - Psycho Social/Smoking Cessation Hx Smoking Status: Yes Smoking History: Current every day smoker Have you smoked in the past 12 months: No Number of Cigarettes Smoked Daily: 6 Information on smoking cessation initiated: Yes 'Breaking Loose' booklet given: 09/23/15 Hx Alcohol Use: No Drug/Substance Use Hx: No Substance Use Type: None Patient Lives Alone: No Lives with/in: parents Review of Systems - Review of Systems Able to Perform ROS?: Yes Constitutional: No: Symptoms Reported HEENTM: No: Symptoms Reported Respiratory: No: Symptoms reported Cardiac (ROS): Yes: Palpitations ABD/GI: No: Symptoms Reported : No: Symptoms Reported Musculoskeletal: No: Symptoms Reported Integumentary: No: Symptoms Reported Neurological: No: Symptoms reported Psychiatric: Yes: Anxiety, Sleep Pattern Change. No: Change in Appetite Endocrine: No: Symptoms Reported Hematologic/Lymphatic: No: Symptoms Reported *Physical Exam - Vital Signs Last Vital Signs Temp Pulse Resp BP Pulse Ox 98.1 F 88 18 124/61 98 02/08/19 15:27 02/08/19 15:27 02/08/19 15:27 02/08/19 15:27 02/08/19 15:27 - Physical Exam General Appearance: Yes: Nourished, Appropriately Dressed. No: Apparent Distress HEENT: positive: Pharynx Normal. negative: Pale Conjunctivae Neck: positive: Supple Respiratory/Chest: positive: Lungs Clear, Normal Breath Sounds. negative: Respiratory Distress, Accessory Muscle Use Cardiovascular: positive: Regular Rhythm, Regular Rate. negative: Murmur Gastrointestinal/Abdominal: positive: Soft. negative: Tenderness Musculoskeletal: negative: CVA Tenderness Extremity: positive: Normal Inspection Integumentary: positive: Normal Color, Warm, Moist Neurologic: positive: Normal Mood/Affect, Motor Strength /5 (ambulatory) ED Treatment Course - LABORATORY CBC & Chemistry Diagram: 02/08/19 15:42 02/08/19 15:42 - ADDITIONAL ORDERS Additional order review: Laboratory Results 02/08/19 02/08/19 15:42 15:42 Sodium 137 Potassium 4.3 Chloride 104 Carbon Dioxide 26 Anion Gap 8 BUN 7.5 Creatinine 0.7 Est GFR (CKD-EPI)AfAm 136.66 Est GFR (CKD-EPI)NonAf 117.91 Random Glucose 88 Calcium 9.5 TSH 1.01 Urine HCG, Qual Negative 02/08/19 15:42 RBC 4.62 MCV 93.1 MCHC 33.0 RDW 13.5 MPV 9.3 Neutrophils % 71.8 Lymphocytes % 20.6 Monocytes % 5.5 Eosinophils % 1.5 Basophils % 0.6 Medical Decision Making - Medical Decision Making 02/08/19 16:27 Chief complaint: Feeling of anxiety with racing heart prior to arrival. Patient with history of bipolar but has been off her medications for the last 3 months. Patient states was out last night drinking and did not sleep well. Exam: Patient upon my examination was sleeping, calm with no complaints presently. Plan: Patient had EKG labs and urine done prior to my arrival from [facility] 02/08/19 17:28 Laboratory Tests 02/08/19 02/08/19 02/08/19 15:42 15:42 15:42 WBC 7.3 Hgb 14.2 Hct 43.0 Neutrophils % 71.8 Sodium 137 Potassium 4.3 Chloride 104 Carbon Dioxide 26 Anion Gap 8 BUN 7.5 Creatinine 0.7 Est GFR (CKD-EPI)AfAm 136.66 Est GFR (CKD-EPI)NonAf 117.91 Random Glucose 88 Calcium 9.5 TSH 1.01 Urine HCG, Qual Negative Patient remains asymptomatic. Will discharge home with supportive care instructions. Discharge - Discharge Information Problems reviewed: Yes Clinical Impression/Diagnosis: Palpitations Condition: Improved Disposition: HOME - Follow up/Referral - Patient Discharge Instructions Patient Printed Discharge Instructions: Yoga May Help Reduce Anxiety and Stress Additional Instructions: Try to avoid increased stress rest eat well-balanced meals, and read over information enclosed on your discharge. - Post Discharge Activity
--- NOTE | 2019-02-09 12:12 | EKG ---
Test Reason : Blood Pressure : / mmHG Vent. Rate : 089 BPM Atrial Rate : 089 BPM P-R Int : 132 ms QRS Dur : 082 ms QT Int : 350 ms P-R-T Axes : 056 068 068 degrees QTc Int : 425 ms POOR DATA QUALITY, INTERPRETATION MAY BE ADVERSELY AFFECTED NORMAL SINUS RHYTHM NORMAL ECG WHEN COMPARED WITH ECG OF 20-JUN-2018 16:52, NO SIGNIFICANT CHANGE WAS FOUND Confirmed by MD Kraig, Edy ([id number]) on 02/09/2019 12:12:19 PM Referred By: Confirmed By:Edy Cornell MD
== END 2019-02-08 19:21 | disposition home or self-care (01) ==
LOC: JER 15:24
DX: R00.2 Palpitations (principal); F41.9 Anxiety disorder, unspecified; F31.9 Bipolar disorder, unspecified; F17.210 Nicotine dependence, cigarettes, uncomplicated; Z91.14 Patient's other noncompliance with medication regimen
CPT/HCPCS: 36415; 80048; 84443; 84703; 85025; 93005; 93010; 99284-25

== ENCOUNTER 2019-02-12 23:15 | Emergency (ER) | payer OTHER ==
[2019-02-12 23:22] VITALS: TEMP 98.6; BMI 23.5
[2019-02-13] MEDS ORDERED: PANTOPRAZOLE 40 MG TABLET (FP) PO ONE (01:12)
--- NOTE | 2019-02-13 01:17 | PDOC ---
History of Present Illness - General Chief Complaint: Respiratory Stated Complaint: COLD SYMPTOMS Time Seen by Provider: 02/13/19 01:06 History Source: Patient Exam Limitations: Clinical Condition - History of Present Illness Initial Comments: 02/13/19 01:20 Patient with h/o bipola presenting with complaint of 2-day history of nonproductive cough, body aches, acid reflux. Patient reported she was seen by ENT a month ago was diagnosed with GERD but has not been having any treatment for it. Denies nausea, vomiting, abdominal pain, recent travel or sick contact. Patient feels she might have the flu request treatment for the flu and also report family members with strep infection. Denies any other symptoms Is this a multiple visit Asthma Patient?: No Timing/Duration: other (2 days) Past History - Past Medical History Allergies/Adverse Reactions: Allergies Allergy/AdvReac Type Severity Reaction Status Date / Time No Known Allergies Allergy Verified 02/12/19 23:22 Home Medications: Ambulatory Orders [place] Carbonate [Eskalith -] 1,200 mg PO DAILY 06/20/18 Risperidone [Risperdal] 2 mg PO DAILY 06/20/18 Amoxicillin - [Amoxicillin 500mg Capsule -] 500 mg PO BID #14 capsule 02/13/19 Benzonatate [Tessalon Pearls -] 100 mg PO Q8H PRN #21 capsule 02/13/19 Oseltamivir Phosphate [Tamiflu -] 75 mg PO BID #10 capsule 02/13/19 Pantoprazole Sodium [Protonix -] 40 mg PO DAILY #30 tablet.ec 02/13/19 COPD: No Psychiatric Problems: Yes - Immunization History Immunization Up to Date: Yes - Psycho Social/Smoking Cessation Hx Smoking Status: Yes Smoking History: Current every day smoker Have you smoked in the past 12 months: No Number of Cigarettes Smoked Daily: 6 Information on smoking cessation initiated: No 'Breaking Loose' booklet given: 09/23/15 Hx Alcohol Use: No Drug/Substance Use Hx: No Substance Use Type: None Review of Systems - Review of Systems Able to Perform ROS?: Yes Is the patient limited Belarusian proficient: No Constitutional: Yes: Malaise. No: Chills, Fever HEENTM: Yes: Symptoms Reported, See HPI, Nose Congestion. No: Eye Pain, Blurred Vision, Tearing, Recent change in vision, Double Vision, Cataracts, Ear Pain, Ocular Prothesis, Ear Discharge, Nose Pain, Tinnitus, Nose Bleeding, Hearing Loss, Throat Pain, Throat Swelling, Mouth Pain, Dental Problems, Difficulty Swallowing, Mouth Swelling, Other Respiratory: Yes: Symptoms reported, See HPI, Cough. No: Orthopnea, Shortness of Breath, SOB with Exertion, SOB at Rest, Stridor, Wheezing, Productive cough, Hemoptysis, Other Cardiac (ROS): No: Symptoms Reported, See HPI, Chest Pain, Edema, Irregular Heart Rate, Lightheadedness, Palpitations, Syncope, Chest Tightness, Other ABD/GI: Yes: Indigestion (acid reflux). No: Symptoms Reported, See HPI, Abdominal Distended, Abd. Pain w/ defecation, Constipated, Diarrhea, Difficulty Swallowing, Nausea, Poor Appetite, Rectal Bleeding, Vomiting, Abdominal cramping , Tarry Stools : No: Burning, Frequency, Urgency All Other Systems: Reviewed and Negative *Physical Exam - Vital Signs Last Vital Signs Temp Pulse Resp BP Pulse Ox 98.6 F 113 H 18 113/70 98 02/12/19 23:20 02/12/19 23:20 02/12/19 23:20 02/12/19 23:20 02/12/19 23:20 - Physical Exam General Appearance: Yes: Nourished, Appropriately Dressed. No: Apparent Distress HEENT: positive: NIDHI, Normal ENT Inspection, Normal Voice, Pharynx Normal Neck: positive: Supple Respiratory/Chest: positive: Lungs Clear, Normal Breath Sounds. negative: Respiratory Distress, Accessory Muscle Use Cardiovascular: positive: Regular Rhythm, Regular Rate. negative: Murmur Gastrointestinal/Abdominal: positive: Normal Bowel Sounds, Flat. negative: Tender Musculoskeletal: positive: Normal Inspection Extremity: positive: Normal Inspection Integumentary: positive: Normal Color Neurologic: positive: Fully Oriented, Alert, Normal Mood/Affect, Normal Response Medical Decision Making - Medical Decision Making 02/13/19 01:21 Patient with h/o bipola presenting with complaint of 2-day history of nonproductive cough, body aches, acid reflux. Patient reported she was seen by ENT a month ago was diagnosed with GERD but has not been having any treatment for it. Denies nausea, vomiting, abdominal pain, recent travel or sick contact. Patient feels she might have the flu request treatment for the flu and also report family members with strep infection. Denies any other symptoms Clinical exam unremarkable with no acute distress. Lungs clear to auscultation bilateral. Patient afebrile. Patient symptoms likely viral URI with acid reflux from GERD. Patient stable for discharge on Tessalon Perles as needed for cough and Protonix once daily for GERD and Amox Abx given exposure to strep with PCP follow-up Discharge - Discharge Information Problems reviewed: Yes Clinical Impression/Diagnosis: URI, acute, Cough GERD (gastroesophageal reflux disease) Qualifiers: Esophagitis presence: without esophagitis Qualified Code(s): K21.9 - Gastro- esophageal reflux disease without esophagitis Condition: Stable Disposition: HOME - Admission No - Additional Discharge Information Prescriptions: Amoxicillin - [Amoxicillin 500mg Capsule -] 500 mg PO BID #14 capsule Benzonatate [Tessalon Pearls -] 100 mg PO Q8H PRN #21 capsule PRN Reason: Cough Oseltamivir Phosphate [Tamiflu -] 75 mg PO BID #10 capsule Pantoprazole Sodium [Protonix -] 40 mg PO DAILY #30 tablet.ec - Follow up/Referral - Patient Discharge Instructions Patient Printed Discharge Instructions: DI for Gastroesophageal Reflux Disease (GERD) Additional Instructions: Take prescribed medications as prescribed for symptoms. Increase fluid intake. Follow-up with PCP - Post Discharge Activity
[2019-02-13] MEDS ORDERED: PANTOPRAZOLE 40 MG TABLET (FP) ONE (01:32)
[2019-02-13] MEDS ORDERED: AMOXICILLIN 500 MG CAPSULE (FP) PO ONE (01:39)
[2019-02-13] MEDS ORDERED: AMOXICILLIN 500 MG CAPSULE (FP) ONE (01:40)
[2019-02-13 02:00] VITALS: BP 116/74; PULSE 97
== END 2019-02-13 01:45 | disposition home or self-care (01) ==
LOC: JER 23:15
DX: J06.9 Acute upper respiratory infection, unspecified (principal); K21.9 Gastro-esophageal reflux disease without esophagitis
CPT/HCPCS: 99282-25

== ENCOUNTER 2019-03-27 18:40 | Emergency (ER) | payer OTHER ==
[2019-03-27 19:27] VITALS: BP 116/65; PULSE 89; TEMP 98.2; BMI 23.5
--- NOTE | 2019-03-27 21:05 | PDOC ---
History of Present Illness - General Chief Complaint: Palpitations Stated Complaint: PALPITATIONS Time Seen by Provider: 03/27/19 20:55 History Source: Patient Exam Limitations: No Limitations - History of Present Illness Initial Comments: 03/27/19 20:58 Patient is a 28-year-old female with history of bipolar disorder complaining of heart racing associated with x3 days. Patient states that the symptoms have been intermittent x 3 days and is assoc/w shortness of breath with heart racing episode, patient states she has been very stressed lately. Symptoms started after smoking a cig and doing laundry. Patient is on control ParaGard, smoker cigarette half a pack per day. Patient states she was seen here on February 08 for similar symptoms and had blood testing done which included CBC , basic, TSH which were negative at that time. PMD: does not remember name PMHX: as above PSOCHX: (+) 1/2 PPD cig, (+) etoh, (-) drug ALL: NKDA GENERAL/CONSTITUTIONAL: [No fever or chills. No weakness. No weight change.] HEAD, EYES, EARS, NOSE AND THROAT: [No change in vision. No ear pain or discharge. No sore throat.] CARDIOVASCULAR: [No chest pain or shortness of breath.] RESPIRATORY: [No cough, wheezing, or hemoptysis.] GASTROINTESTINAL: [No nausea, vomiting, diarrhea or constipation. No rectal bleeding.] GENITOURINARY: [No dysuria, frequency, or change in urination.] MUSCULOSKELETAL: [No joint or muscle swelling or pain. No neck or back pain.] SKIN AND BREASTS: [No rash or easy bruising.] NEUROLOGIC: [No headache, vertigo, loss of consciousness, or loss of sensation.] PSYCHIATRIC: [No depression or anxiety.] ENDOCRINE: [No increased thirst. No abnormal weight change.] HEMATOLOGIC/LYMPHATIC: [No anemia, easy bleeding, or history of blood clots.] ALLERGIC/IMMUNOLOGIC: [No hives or skin allergy. No latex allergy.] GENERAL: [The patient is awake, alert, and fully oriented, in no acute distress. ] HEAD: [Normal with no signs of trauma.] EYES: [Pupils equal, round and reactive to light, extraocular movements intact, sclera anicteric, conjunctiva clear.] ENT: [Ears normal, nares patent, oropharynx clear without exudates. Moist mucous membranes.] NECK: [Normal range of motion, supple without lymphadenopathy, JVD, or masses.] LUNGS: [Breath sounds equal, clear to auscultation bilaterally. No wheezes, and no crackles.] HEART: [Regular rate and rhythm, normal S1 and S2 without murmur, rub.] ABDOMEN: [Soft, nontender, normoactive bowel sounds. No guarding, no rebound. No masses.] EXTREMITIES: [Normal range of motion, no edema. No clubbing or cyanosis. No cords, erythema, or tenderness.] NEUROLOGICAL: [Cranial nerves II through XII grossly intact. Normal speech, normal gait.] PSYCH: [Normal mood, normal affect.] SKIN: [Warm, Dry, normal turgor, no rashes or lesions noted.] Past History - Past Medical History Allergies/Adverse Reactions: Allergies Allergy/AdvReac Type Severity Reaction Status Date / Time No Known Allergies Allergy Verified 02/12/19 23:22 Home Medications: Ambulatory Orders Valera Carbonate [Eskalith -] 1,200 mg PO DAILY 06/20/18 Risperidone [Risperdal] 2 mg PO DAILY 06/20/18 Amoxicillin - [Amoxicillin 500mg Capsule -] 500 mg PO BID #14 capsule 02/13/19 Benzonatate [Tessalon Pearls -] 100 mg PO Q8H PRN #21 capsule 02/13/19 Oseltamivir Phosphate [Tamiflu -] 75 mg PO BID #10 capsule 02/13/19 Pantoprazole Sodium [Protonix -] 40 mg PO DAILY #30 tablet.ec 02/13/19 COPD: No Psychiatric Problems: Yes - Immunization History Immunization Up to Date: Yes - Psycho Social/Smoking Cessation Hx Smoking Status: Yes Smoking History: Current some day smoker Have you smoked in the past 12 months: No Number of Cigarettes Smoked Daily: 10 Information on smoking cessation initiated: No 'Breaking Loose' booklet given: 09/23/15 Hx Alcohol Use: No Drug/Substance Use Hx: No Substance Use Type: None Cardiac Specific PMH - Complaint Specific PMHX GERD: No *Physical Exam - Vital Signs Last Vital Signs Temp Pulse Resp BP Pulse Ox 98.2 F 89 19 116/65 100 03/27/19 19:23 03/27/19 19:23 03/27/19 19:23 03/27/19 19:23 03/27/19 19:23 ED Treatment Course - LABORATORY CBC & Chemistry Diagram: 03/27/19 21:40 03/27/19 21:40 - ADDITIONAL ORDERS Additional order review: Laboratory Results 03/27/19 03/27/19 03/27/19 21:40 21:40 21:40 D-Dimer 276 Sodium 138 Potassium 4.6 Chloride 105 Carbon Dioxide 26 Anion Gap 8 BUN 11.8 Creatinine 0.6 Est GFR (CKD-EPI)AfAm 143.77 Est GFR (CKD-EPI)NonAf 124.04 Random Glucose 96 Calcium 9.3 Total Bilirubin 0.5 AST 19 ALT 50 Alkaline Phosphatase 72 Total Protein 7.8 Albumin 3.9 Serum , Qual Negative 03/27/19 21:40 RBC 4.43 MCV 94.1 MCHC 33.8 RDW 13.2 MPV 9.2 Neutrophils % 69.8 Lymphocytes % 23.0 Monocytes % 4.4 Eosinophils % 2.1 Basophils % 0.7 Medical Decision Making - Medical Decision Making 03/27/19 20:58 Patient is a 28-year-old female with history of bipolar disorder complaining of heart racing associated with x3 days. Patient states that the symptoms have been intermittent x 3 days and is assoc/w shortness of breath with heart racing episode, patient states she has been very stressed lately. Symptoms started after smoking a cig and doing laundry. Patient is on control ParaGard, smoker cigarette half a pack per day. Patient states she was seen here on February 08 for similar symptoms and had blood testing done which included CBC , basic, TSH which were negative at that time. DDX: anxiety, PE, will get labs, reassess EKG: SR rate 77, NAD, no ST-T wave changes Labs reviewed no acute findings d-dimer is negative, test negative. I discussed the physical exam findings, ancillary test results and final diagnoses with the patient. I answered all of the patient's questions. The patient was satisfied with the care received and felt comfortable with the discharge plan and treatment plan. The Patient agrees to follow up with the primary care physician within 24-72 hours. Discharge - Discharge Information Problems reviewed: Yes Clinical Impression/Diagnosis: Palpitations Condition: Stable Disposition: HOME - Follow up/Referral - Patient Discharge Instructions Patient Printed Discharge Instructions: DI for Palpitations Additional Instructions: Your Discharge Instructions: You must call primary care physician within 24 hours to arrange follow-up. Return to the Emergency Department with any new, persistent or worsening symptoms, for fever, chills, SOB, dizziness or any other concerning changes that may occur. Follow-up with your pail tester call for an appointment. - Post Discharge Activity
[2019-03-27 21:58] LABS: BASO % 0.7 % (0-2.0); EOS % 2.1 % (0-4.5); HEMATOCRIT 41.7 % (32.4-45.2); HEMOGLOBIN 14.1 GM/dL (10.7-15.3); MCH 31.8 pg (25.7-33.7); MCHC 33.8 g/dl (32.0-36.0); MEAN CELL VOLUME 94.1 fl (80-96); MEAN PLT VOLUME 9.2 fl (7.5-11.1); MONO % 4.4 % (3.8-10.2); NEUT % 69.8 % (42.8-82.8); PLATELET COUNT 267 K/MM3 (134-434); RBC 4.43 M/mm3 (3.60-5.2); RDW 13.2 % (11.6-15.6); WHITE BLOOD COUNT 10.8 K/mm3 (4.0-10.0)
[2019-03-27 22:46] LABS: ALBUMIN 3.9 g/dl (3.4-5.0); BILIRUBIN,TOTAL 0.5 mg/dL (0.2-1); BLOOD UREA NITROGEN 11.8 mg/dL (7-18); CALCIUM 9.3 mg/dL (8.5-10.1); CREATININE 0.6 mg/dL (0.55-1.3); POTASSIUM 4.6 mmol/L (3.5-5.1); TOT PROT 7.8 g/dl (6.4-8.2)
--- NOTE | 2019-03-28 14:14 | EKG ---
Test Reason : Blood Pressure : / mmHG Vent. Rate : 077 BPM Atrial Rate : 077 BPM P-R Int : 132 ms QRS Dur : 082 ms QT Int : 360 ms P-R-T Axes : 047 055 055 degrees QTc Int : 407 ms NORMAL SINUS RHYTHM NORMAL ECG Confirmed by MD BILL GREGORY ([id number]) on 03/28/2019 2:13:46 PM Referred By: Confirmed By:SAILAJA BILL MD
== END 2019-03-28 00:05 | disposition home or self-care (01) ==
LOC: JER 18:40
DX: R00.2 Palpitations (principal); F31.9 Bipolar disorder, unspecified; Z72.0 Tobacco use
CPT/HCPCS: 36415; 80053; 84703; 85025; 85379; 93005; 93010; 99282-25

== ENCOUNTER 2020-03-02 18:19 | Emergency (ER) | payer OTHER ==
[2020-03-02 18:36] VITALS: BP 115/69; PULSE 93; TEMP 99.3; BMI 23.5
[2020-03-02] MEDS ORDERED: DIPHTH,PERTUSS(ACELL),TET 0.5 ML DISP.SYRIN IM ONE ×2 (19:52→19:55)
== END 2020-03-02 21:01 | disposition home or self-care (01) ==
LOC: FER 18:19
PROC: 3E0234Z Introduction of Serum, Toxoid and Vaccine into Muscle, Percutaneous Approach (ICD-10-PCS; principal; 2020-03-02)
DX: S61.306A Unspecified open wound of right little finger with damage to nail, initial encounter (principal); S92.352A Displaced fracture of fifth metatarsal bone, left foot, initial encounter for closed fracture
CPT/HCPCS: 73630-TC-LT; 90471; 90715; 99284-25

== ENCOUNTER 2020-03-03 10:35 | Emergency (ER) | payer OTHER ==
[2020-03-03 10:47] VITALS: BP 101/68; PULSE 70; BMI 23.5
[2020-03-03] MEDS ORDERED: LIDOCAINE HCL 2% (50ML VIAL) SQ ONE (11:57)
[2020-03-03] MEDS ORDERED: LIDOCAINE HCL 2% (20ML MULTI-DOSE VIAL) ONE (12:04)
== END 2020-03-03 13:11 | disposition home or self-care (01) ==
LOC: JER 10:35 → JERFT 10:35
DX: S61.305A Unspecified open wound of left ring finger with damage to nail, initial encounter (principal)
CPT/HCPCS: 87070; 87077; 87186; 87205; 99284-25

== ENCOUNTER 2023-03-01 04:32 | Emergency (ER) | payer OTHER ==
[2023-03-01 04:52] VITALS: BP 107/71; PULSE 90; RESP 18; TEMP 97.7; BMI 23.5
[2023-03-01] MEDS ORDERED: PHENAZOPYRIDINE HCL 100 MG TABLET (FP) PO ONE (05:10)
[2023-03-01] MEDS ORDERED: PHENAZOPYRIDINE HCL 100 MG TABLET (FP) ONE (05:16)
[2023-03-01 06:31] LABS: EPI CELLS 10 /uL (0-25.1); HYALINE CASTS 0 /uL (0-3.1); URINE APPEARANCE CLOUDY; URINE BACTERIA 408 /uL (0-1359); URINE BILIRUBIN NEGATIVE (NEGATIVE); URINE COLOR YELLOW; URINE GLUCOSE (UA) NEGATIVE (NEGATIVE); URINE KETONE NEGATIVE (NEGATIVE); URINE LEUK ESTERASE 3+ (NEGATIVE); URINE NITRITE NEGATIVE (NEGATIVE); URINE PROTEIN 1+ (NEGATIVE); URINE UROBILINOGEN 0.2 mg/dL (0.2-1.0); URINE WBC 1978 /uL (0-25.8)
[2023-03-01] MEDS ORDERED: CEPHALEXIN MONOHYDRATE 500 MG CAPSULE (UD) PO ONE (06:34)
[2023-03-01] MEDS ORDERED: IBUPROFEN 600 MG TABLET (FP) PO ONE ×2 (06:35→06:37)
[2023-03-01] MEDS ORDERED: CEPHALEXIN MONOHYDRATE 500 MG CAPSULE (UD) ONE (06:37)
[2023-03-01 08:25] LABS: URINE RBC 610.7 /uL (0-23.9)
[2023-03-01 08:26] LABS: YEAST NEGATIVE (NEGATIVE)
== END 2023-03-01 06:57 | disposition home or self-care (01) ==
LOC: JER 04:32
DX: N39.0 Urinary tract infection, site not specified (principal); R30.0 Dysuria; R10.9 Unspecified abdominal pain; R07.89 Other chest pain; M54.2 Cervicalgia; R51.9 Headache, unspecified
CPT/HCPCS: 81003; 84703; 87086; 87186; 99283-25

== ENCOUNTER 2023-10-12 08:00 | Emergency (ER) | payer OTHER ==
[2023-10-12 08:06] VITALS: BP 107/88; PULSE 63; RESP 16; TEMP 98.8; BMI 22.7
[2023-10-12] MEDS ORDERED: ONDANSETRON 4 MG/2 ML VIAL ONE (09:08)
[2023-10-12] MEDS: ONDANSETRON 4 MG/2 ML VIAL IVPUSH ONE (09:40)
[2023-10-12] MEDS: SODIUM CHLORIDE 1,000 ML IV STA (09:40)
[2023-10-12 09:51] LABS: BASO % 1.2 % (0-2.0); EOS % 2.4 % (0-4.5); HEMATOCRIT 39.7 % (32.4-45.2); HEMOGLOBIN 13.5 GM/dL (10.7-15.3); LYMPH % 36.1 % (8-40); MCH 31.4 pg (25.7-33.7); MCHC 33.9 g/dl (32.0-36.0); MEAN CELL VOLUME 92.5 fl (80-96); MEAN PLT VOLUME 8.9 fl (7.5-11.1); MONO % 3.6 % (3.8-10.2); NEUT % 56.7 % (42.8-82.8); PLATELET COUNT 227 10^3/uL (134-434); RBC 4.29 M/mm3 (3.60-5.2); RDW 12.8 % (11.6-15.6); WHITE BLOOD COUNT 4.4 K/mm3 (4.0-10.0)
[2023-10-12 10:02] LABS: POTASSIUM 4.9 mmol/L (3.5-5.1)
[2023-10-12 10:04] LABS: ACTIVATED PTT 33.4 SECONDS (25.2-36.5); ALBUMIN 3.9 g/dl (3.4-5.0); BLOOD UREA NITROGEN 7.9 mg/dL (7-18); CALCIUM 9.3 mg/dL (8.5-10.1); INR 0.96 (0.83-1.09); PROTHROMBIN TIME (PATIENT) 11.1 SEC (9.7-13.0)
[2023-10-12 10:07] LABS: CREATININE 0.5 mg/dL (0.55-1.3)
[2023-10-12 10:09] LABS: BILIRUBIN,TOTAL 0.6 mg/dL (0.2-1); TOT PROT 7.8 g/dl (6.4-8.2)
== END 2023-10-12 10:52 | disposition home or self-care (01) ==
LOC: JER 08:00
PROC: 3E033GC Introduction of Other Therapeutic Substance into Peripheral Vein, Percutaneous Approach (ICD-10-PCS; principal; 2023-10-12)
PROC: 3E0337Z Introduction of Electrolytic and Water Balance Substance into Peripheral Vein, Percutaneous Approach (ICD-10-PCS; 2023-10-12)
DX: R55 Syncope and collapse (principal); R00.2 Palpitations; R42 Dizziness and giddiness; R61 Generalized hyperhidrosis; M79.10 Myalgia, unspecified site; R50.9 Fever, unspecified; R53.1 Weakness; R11.0 Nausea; U07.1 COVID-19
CPT/HCPCS: 0241U-QW; 36415; 80053; 84484; 84703; 85025; 85610; 85730; 86850; 86900; 86901; 93005; 93010; 96361; 96374; 99284-25